=== PATIENT | female | born 2000 | race Hispanic/Latino ===

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

== ENCOUNTER 2021-08-09 16:52 | Emergency (ER) | payer MEDICAID ==
[~2021-08-09] VITALS: Ht 154.9 cm; Wt 72.0 kg
[~2021-08-09 16:52] MED LIST changes: +PRENATAL1 TA1 PO
[2021-08-09] MEDS ORDERED: ZOFRAN4 MG/TAB PO (18:50)
[2021-08-09 19:15] VITALS: BP 114/55
== END 2021-08-09 19:15 | disposition home or self-care (01) ==
LOC: ED 16:52
DX: O98.511 Other viral diseases complicating pregnancy, first trimester (principal); B34.9 Viral infection, unspecified; Z3A.00 Weeks of gestation of pregnancy not specified; Z20.822 Contact with and (suspected) exposure to COVID-19